=== PATIENT | female | born 1930 | race Caucasian/White ===

== ENCOUNTER 2016-11-08 08:53 | Outpatient (CLI) | payer MEDICARE, BC ==
[~2016-11-08] VITALS: Ht 157.5 cm; Wt 62.3 kg
[2016-11-08] VITALS (9 sets, daily range): BP systolic 110–136; BP diastolic 33–44; PULSE 43–60; TEMP 98–98.3
[~2016-11-08 08:53] MED LIST: ACCOLATE 220 MG/1 TA PO; ACCUPRIL20 MG PO; ACYCLOVIR800 MG PO; ADVAIR 250/28 DISKUS IH; ASPIR-LOW81 MG PO; ASPIRIN E.C. 8181 MG PO; BENICAR 20MG TA20 MG PO; BIAXIN XL 500M500 MG PO; CARDIZEM CD 18180 MG PO; COUMADIN 2MG2 MG/TAB PO; COUMADIN 5MG5 MG/TAB PO; DIOVAN 160MG160 MG PO; FLONASE NASAL S16 GM NS; GENTAMICIN180 MG/501 INH; LOVENOX 100100 MG/ML SQ; MULTI VITAMINS1 TAB PO; NATURAL E400 IU PO; NIACIN500 MG PO; NORCO 325 MG-51 TAB PO; PRAVACHOL 40MG40 MG PO; RT ADVAIR 228 DISKUS IH; TOBRAMYCIN SULF NAS; VITAMIN C500 MG PO; VITAMIN D 400400 IU PO; ZETIA10 MG PO; ZYRTEC 10MG; ZYRTEC 10MG10 MG PO; [UNRECOGNIZED DRUG - OTHER] PO
[2016-11-08] MEDS ORDERED: MULTI VITAMINS1 TAB PO (09:42)
== END 2016-11-08 13:07 | disposition home or self-care (01) ==
LOC: EUO 08:53
DX: D80.1 Nonfamilial hypogammaglobulinemia (principal)
CPT/HCPCS: J1459

== ENCOUNTER → 2017-01-08 | Outpatient (CLI) | payer MEDICARE, BC ==
[2017-01-08] VITALS (9 sets, daily range): BP systolic 105–133; BP diastolic 4–90; PULSE 49–64; TEMP 97–98.5
[~2017-01-08] VITALS: Ht 157.5 cm; Wt 61.0 kg
[~2017-01-08] MED LIST changes: +DIOVAN 80MG80 MG PO; +ELIQUIS 2.5 PO
== END ==
LOC: EUO 01-03 08:00
DX: D80.1 Nonfamilial hypogammaglobulinemia (principal)
CPT/HCPCS: J1459

== ENCOUNTER 2017-03-07 07:44 | Outpatient (CLI) | payer MEDICARE, BC ==
[2017-03-07] VITALS (10 sets, daily range): BP systolic 111–139; BP diastolic 37–54; PULSE 50–61; TEMP 97.5–98.5
[~2017-03-07] VITALS: Ht 157.5 cm; Wt 61.4 kg
[~2017-03-07 07:44] MED LIST changes: -DIOVAN 80MG80 MG PO; -ELIQUIS 2.5 PO
[2017-03-07] MEDS ORDERED: DIOVAN 80MG80 MG PO (08:50)
[2017-03-07] MEDS ORDERED: ELIQUIS 2.5 PO (08:52)
== END 2017-03-07 12:40 | disposition home or self-care (01) ==
LOC: EUO 07:44
DX: D80.1 Nonfamilial hypogammaglobulinemia (principal)
CPT/HCPCS: J1459

== ENCOUNTER 2017-05-02 08:08 | Outpatient (CLI) | payer MEDICARE, BC ==
[~2017-05-02] VITALS: Ht 154.9 cm; Wt 62.0 kg
[2017-05-02] VITALS (9 sets, daily range): BP systolic 130–144; BP diastolic 30–54; PULSE 44–66; TEMP 97–98.3
[~2017-05-02 08:08] MED LIST changes: +DIOVAN 80MG80 MG PO; +ELIQUIS 2.5 PO
== END 2017-05-02 13:00 | disposition home or self-care (01) ==
LOC: EUO 08:08
DX: D80.1 Nonfamilial hypogammaglobulinemia (principal); Z79.899 Other long term (current) drug therapy
CPT/HCPCS: J1459

== ENCOUNTER 2017-07-04 07:42 | Outpatient (CLI) | payer MEDICARE, BC ==
[2017-07-04] VITALS (11 sets, daily range): BP systolic 117–140; BP diastolic 35–44; PULSE 62–67; TEMP 97.7–98.3
[~2017-07-04] VITALS: Ht 154.9 cm; Wt 62.1 kg
== END 2017-07-04 12:14 | disposition home or self-care (01) ==
LOC: EUO 07:42
DX: D80.1 Nonfamilial hypogammaglobulinemia (principal); Z79.899 Other long term (current) drug therapy
CPT/HCPCS: J1459

== ENCOUNTER 2017-08-29 07:43 | Outpatient (CLI) | payer MEDICARE, BC ==
[2017-08-29] VITALS (7 sets, daily range): BP systolic 124–141; BP diastolic 36–97; PULSE 55–63; TEMP 97.8–98
[~2017-08-29] VITALS: Ht 154.9 cm; Wt 63.4 kg
== END 2017-08-29 12:38 | disposition home or self-care (01) ==
LOC: EUO 07:43
DX: D80.1 Nonfamilial hypogammaglobulinemia (principal)
CPT/HCPCS: J1459; J1569

== ENCOUNTER 2017-10-25 12:49 | Outpatient (CLI) | payer MEDICARE, BC ==
[~2017-10-25] VITALS: Ht 154.9 cm; Wt 62.9 kg
[2017-10-25] VITALS (8 sets, daily range): BP systolic 129–147; BP diastolic 36–58; PULSE 53–61; TEMP 98.1–98.4
== END 2017-10-25 17:23 | disposition home or self-care (01) ==
LOC: EUO 12:49
DX: D80.1 Nonfamilial hypogammaglobulinemia (principal)
CPT/HCPCS: J1459; J1569

== ENCOUNTER → 2017-12-19 | Outpatient (CLI) | payer MEDICARE, BC ==
[2017-12-19 13:41] LABS: BASO # 0.1 (0.0-0.2); EOS # 0.1 (0.0-0.7); EOS % 1.9 % (0-4.0); GRAN # 4.4 (1.4-6.5); GRAN % 64.5 % (42.2-75.2); LYMPH # 1.5 (1.2-3.4); LYMPH % 21.8 % (20.0-51.0); MEAN CELL VOLUME 93 fl (80.0-100.0); MEAN CORPUSCULAR HGB CONC 33 g/dl (33.0-37.0); MEAN PLATELET VOLUME 9.8 fl (7.4-10.4); MONO # 0.7 (0.1-0.6); MONO % 10.5 % (1.7-9.3); PLATELET COUNT 231 K/mm3 (130-400); RED BLOOD COUNT 3.72 M/mm3 (4.10-5.30); REDCELL DISTRIBUTION WIDTH-CV 14.3 % (11.5-14.5)
[2017-12-19 13:47] LABS: HEMATOCRIT 34.7 % (37.0-47.0); HEMOGLOBIN 11.4 g/dl (12.5-16.0); MEAN CORPUSCULAR HEMOGLOBIN 31 pg (27.0-31.0)
[2017-12-19 13:52] LABS: BILIRUBIN,TOTAL 0.2 mg/dL (0.0-1.0); CALCIUM 9.5 mg/dL (8.4-10.2); CREATININE, serum 0.99 mg/dL (0.52-1.25); POTASSIUM 4.4 mmol/L (3.4-5.0); TOTAL PROTEIN 7.5 gm/dL (6.4-8.2)
== END ==
LOC: COL.LAB 13:05
PROVIDERS: Physician Assistant
DX: Z79.899 Other long term (current) drug therapy (principal)

== ENCOUNTER 2017-12-26 09:47 | Outpatient (CLI) | payer MEDICARE, BC ==
[~2017-12-26] VITALS: Ht 154.9 cm; Wt 60.5 kg
[2017-12-26] VITALS (9 sets, daily range): BP systolic 11–124; BP diastolic 28–62; PULSE 50–94; TEMP 97.7–98.9
== END 2017-12-26 14:02 | disposition home or self-care (01) ==
LOC: EUO 09:47
DX: D80.1 Nonfamilial hypogammaglobulinemia (principal); Z79.899 Other long term (current) drug therapy
CPT/HCPCS: J1569

== ENCOUNTER 2018-03-06 09:42 | Outpatient (CLI) | payer MEDICARE, BC ==
[~2018-03-06] VITALS: Ht 154.9 cm; Wt 62.1 kg
[2018-03-06] VITALS (9 sets, daily range): BP systolic 111–135; BP diastolic 36–75; PULSE 55–68; TEMP 97.3–98.5
[2018-03-06] MEDS ORDERED: LUTEIN 15 MG-0.1 SGL PO (10:25)
== END 2018-03-06 14:33 | disposition home or self-care (01) ==
LOC: EUO 09:42
DX: D80.1 Nonfamilial hypogammaglobulinemia (principal)
CPT/HCPCS: J1459; J1569

== ENCOUNTER 2018-05-01 09:47 | Outpatient (CLI) | payer MEDICARE, BC ==
[2018-05-01] VITALS (11 sets, daily range): BP systolic 115–135; BP diastolic 31–47; PULSE 56–68; TEMP 97.6–98.2
[~2018-05-01] VITALS: Ht 154.9 cm; Wt 61.4 kg
[~2018-05-01 09:47] MED LIST changes: +LUTEIN 15 MG-0.1 SGL PO
[2018-05-01] MEDS ORDERED: PRIVIGEN 100 M100 ML IV (15:54)
== END 2018-05-01 14:15 | disposition home or self-care (01) ==
LOC: EUO 09:47
DX: D80.1 Nonfamilial hypogammaglobulinemia (principal); Z79.899 Other long term (current) drug therapy
CPT/HCPCS: J1569

== ENCOUNTER → 2018-05-10 | Outpatient (CLI) | payer MEDICARE, BC ==
[~2018-05-10] MED LIST changes: +PRIVIGEN 100 M100 ML IV
[2018-05-10 16:43] LABS: BASO # 0.1 (0.0-0.2); BASO % 0.7 % (0.0-2.0); EOS # 0.2 (0.0-0.7); EOS % 2.9 % (0-4.0); GRAN # 4.6 (1.4-6.5); GRAN % 63.4 % (42.2-75.2); HEMOGLOBIN 10.4 g/dl (12.5-16.0); LYMPH # 1.6 (1.2-3.4); LYMPH % 22.2 % (20.0-51.0); MEAN CELL VOLUME 93 fl (80.0-100.0); MEAN CORPUSCULAR HEMOGLOBIN 31 pg (27.0-31.0); MEAN CORPUSCULAR HGB CONC 33 g/dl (33.0-37.0); MEAN PLATELET VOLUME 10.4 fl (7.4-10.4); MONO # 0.8 (0.1-0.6); MONO % 10.5 % (1.7-9.3); PLATELET COUNT 204 K/mm3 (130-400); RED BLOOD COUNT 3.37 M/mm3 (4.10-5.30)
[2018-05-10 16:47] LABS: HEMATOCRIT 31.3 % (37.0-47.0)
[2018-05-10 16:53] LABS: ALBUMIN 4.1 gm/dL (3.5-5.0); BILIRUBIN,TOTAL 0.2 mg/dL (0.0-1.0); CALCIUM 9.1 mg/dL (8.4-10.2); POTASSIUM 4.1 mmol/L (3.4-5.0); TOTAL PROTEIN 7.8 gm/dL (6.4-8.2)
[2018-05-11 08:32] LABS: PH 7 (5-8); SQUAMOUS EPITHELIAL None Seen /hpf; URINE APPEARANCE Clear; URINE BACTERIA None Seen /hpf; URINE BILIRUBIN Negative (NEGATIVE); URINE BLOOD Negative (NEGATIVE); URINE COLOR Straw; URINE GLUCOSE Negative (NEGATIVE); URINE KETONE Negative (NEGATIVE); URINE LEUKOCYTE ESTERASE Negative (NEGATIVE); URINE NITRATE Negative (NEGATIVE); URINE PROTEIN(semi-quant) Negative (NEGATIVE); URINE RBC 0-2 /hpf; URINE UROBILINOGEN Negative (NEGATIVE); URINE WBC 0-2 /hpf
[2018-05-11 09:43] LABS: COLLECTION METHOD CLEAN CATCH
== END ==
LOC: COL.LAB 16:03
PROVIDERS: Physician Assistant
DX: R11.0 Nausea (principal); R30.0 Dysuria

== ENCOUNTER 2018-07-16 11:03 | Outpatient (CLI) | payer MEDICARE, BC ==
[2018-07-16] VITALS (9 sets, daily range): BP systolic 106–149; BP diastolic 32–87; PULSE 45–59; TEMP 97.8–98.6
[~2018-07-16] VITALS: Ht 154.9 cm; Wt 61.0 kg
[2018-07-16] MEDS ORDERED: BENICAR 20MG TA20 MG PO (11:55)
[2018-07-16] MEDS ORDERED: BENADRYL25 M2 PO (12:00)
== END 2018-07-16 15:08 | disposition home or self-care (01) ==
LOC: EUO 11:03
DX: D80.1 Nonfamilial hypogammaglobulinemia (principal); Z79.899 Other long term (current) drug therapy
CPT/HCPCS: J1459; J1569

== ENCOUNTER 2018-09-24 11:02 | Outpatient (CLI) | payer MEDICARE, BC ==
[~2018-09-24 11:02] MED LIST changes: +BENADRYL25 M2 PO; -CARDIZEM CD 18180 MG PO; +CARDIZEM CD 24240 MG PO
[2018-09-24 11:45] VITALS: BP 112/31; PULSE 57; TEMP 97.9
[2018-09-24 12:00] VITALS: BP 115/29; PULSE 54
[2018-09-24 12:15] VITALS: BP 129/35; PULSE 52; TEMP 98.2
[2018-09-24 12:45] VITALS: BP 132/37; PULSE 54; TEMP 97.9
[2018-09-24 13:35] VITALS: BP 139/40; PULSE 57; TEMP 98.3
[2018-09-24 14:38] VITALS: BP 151/50; PULSE 65; TEMP 98.2
== END 2018-09-24 14:45 | disposition home or self-care (01) ==
LOC: EUO 11:02
DX: Z79.899 Other long term (current) drug therapy (principal)
CPT/HCPCS: J1569

== ENCOUNTER 2018-11-19 08:53 | Outpatient (CLI) | payer MEDICARE, BC ==
[~2018-11-19] VITALS: Ht 154.9 cm; Wt 60.9 kg
[2018-11-19 09:20] VITALS: BP 126/61; PULSE 58; TEMP 98.1
[2018-11-19 09:35] VITALS: BP 122/50; PULSE 56; TEMP 98.1
[2018-11-19 09:50] VITALS: BP 132/49; PULSE 55; TEMP 98.1
[2018-11-19 10:19] VITALS: BP 121/48; PULSE 56; TEMP 98.1
[2018-11-19 12:05] VITALS: BP 123/48; PULSE 56; TEMP 98.1
== END 2018-11-19 12:00 | disposition home or self-care (01) ==
LOC: EUO 08:53
DX: D80.1 Nonfamilial hypogammaglobulinemia (principal); Z79.899 Other long term (current) drug therapy
CPT/HCPCS: J1459; J1569

== ENCOUNTER → 2019-01-03 | Outpatient (CLI) | payer MEDICARE, BC | LOC: COL.CARD 07:14 | DX: R00.1 Bradycardia, unspecified (principal) ==

== ENCOUNTER 2019-01-14 08:44 | Outpatient (CLI) | payer MEDICARE, BC ==
[2019-01-14] VITALS (9 sets, daily range): BP systolic 128–146; BP diastolic 54–104; PULSE 52–62; TEMP 97.5–98.4
[~2019-01-14] VITALS: Ht 154.9 cm; Wt 60.4 kg
== END 2019-01-14 13:54 | disposition home or self-care (01) ==
LOC: EUO 08:44
DX: D80.1 Nonfamilial hypogammaglobulinemia (principal); Z79.899 Other long term (current) drug therapy
CPT/HCPCS: J1569